=== PATIENT | male | born 2000 | race Caucasian/White ===

== ENCOUNTER 2024-11-26 11:28 | Emergency (ER) | payer OTHER, SELFPAY ==
[2024-11-26] VITALS (11 sets, daily range): BP systolic 121–146; BP diastolic 61–82; PULSE 68–87; RESP 2–18; TEMP 36; O2SAT 97–100; BMI 44.3
--- NOTE | 2024-11-26 11:57 | DI.RAD.S_ITS ---
PROCEDURE: XR CHEST 1V INDICATIONS: chest pain TECHNIQUE: One view of the chest was acquired. COMPARISON: None. FINDINGS: Surgical changes and devices: None. Lungs and pleura: Lungs are clear. No pleural effusions or pneumothorax. Mediastinum: Mediastinal contours appear normal. Heart size is normal. Bones and chest wall: No suspicious bony lesions. Overlying soft tissues appear unremarkable. IMPRESSION: No acute cardiothoracic process. Dictated by: Kurt Arcos M.D. on 11/26/2024 at 12:35 Approved by: Kurt Arcos M.D. on 11/26/2024 at 12:35
--- NOTE | 2024-11-26 12:02 | EKG_ITS ---
[address] [address] Test Date: 2024-11-26 Pat Name: Bimal Zhong Department: Room: Gender: Male Program Host: BELLE : 2000 Requested By: Order Number: [id number] Reading MD: Kimani Dye Measurements Intervals [place] Rate: 81 P: 31 ME: 168 QRS: 17 QRSD: 92 T: 13 QT: 378 QTc: 439 Interpretive Statements Normal sinus rhythm Electronically Signed On 11-26-2024 15:41:55 PDT by Kimani Dye
[2024-11-26 12:42] LABS: Add Manual Diff / Slide Review NO; Basophils Absolute Auto 0 /uL (0-100); Basophils Percent Auto 0.6 % (0-2); Eosinophils Absolute Auto 100 /uL (0-450); Eosinophils Percent Auto 0.7 % (2-4); Hematocrit 43.5 % (41-53); Lymphocytes Absolute Auto 1600 /uL (1100-4500); Lymphocytes Percent Auto 21.7 % (25-40); Mean Corpuscular HGB Conc 34.4 % (30-36); Mean Corpuscular Hemoglobin 28.7 PG (26-34); Mean Corpuscular Volume 83.4 fL (80-100); Monocytes Absolute Auto 800 /uL (0-900); Monocytes Percent Auto 10.4 % (3-14); Neutrophils Absolute Auto 5100 /uL (1500-7000); Neutrophils Percent Auto 66.6 % (50-75); Platelet Count 298 X10^3/uL (150-400); Red Blood Cell Count 5.22 X10^6/uL (4.5-5.9); Red Cell Distribution Width 13.3 % (11.6-14.8); White Blood Cell Count 7.6 X10^3/uL (4.5-11.0)
[2024-11-26 12:54] LABS: Prothrombin Time 11.5 SECONDS (9.4-12.5)
[2024-11-26 12:57] LABS: PTT Partial Thromboplastin Tim 38 SECONDS (25.1-36.5)
[2024-11-26 13:01] LABS: Alanine Aminotransferase 43 IU/L (<50); Albumin 4.4 g/dL (3.5-5.0); Albumin Globulin Ratio 1.2 (1.0-2.8); Alkaline Phosphatase 84 U/L (38-126); Aspartate Aminotransferase 37 IU/L (17-59); BUN Creatinine Ratio 15.6 (6-22); Bilirubin Total 0.7 mg/dL (0.2-1.3); Blood Urea Nitrogen 14 mg/dL (9-20); Calcium 9.1 mg/dL (8.4-10.2); Carbon Dioxide 28 mmol/L (22-32); Chloride 102 mmol/L (98-107); Creatine Kinase 229 U/L (55-170); Estimated Glomerular Filt Rate > 60 mL/min (>60); Globulin 3.8 g/dL (1.7-4.1); Glucose 74 mg/dL (70-100); HEMOLYSIS < 15 (0-50); Lipase 43 U/L (23-300); Sodium 138 mmol/L (137-145); Total Protein 8.2 g/dL (6.3-8.2)
[2024-11-26 13:13] LABS: NT-proBNP (BNP-Adult 18+) < 20 pg/mL (<125); Troponin I < 0.012 ng/mL (0.01-0.034)
--- NOTE | 2024-11-26 13:59 | ED_ITS ---
HPI - Chest Pain General Chief Complaint: Chest Pain Stated Complaint: Sent from [facility] Mild chest pain Time Seen by Provider: 11/26/24 13:38 Source: patient Mode of arrival: Ambulatory Limitations: no limitations History of Present Illness HPI narrative: 24-year-old male no reported medical issues who presents with complaint of chest pain left-sided without radiation. Patient states has been about a week and a half. Been fairly constant occasionally goes away. He states it seems to be worse when he vapes. It seems to be better when he rests. He states exertion ambulation movement do not really seemed to make it a lot worse. Denies any shortness of breath. No fevers or chills. No cold cough or congestion. Little nauseated today but no vomiting. No diaphoresis. No new swelling in extremities. No issues with bowel movements or urination. No rash or skin changes. Patient states he presented today because pain was maybe slightly worse in the last several days. States no daily medications, no prior surgeries. No known drug allergies. Does use nicotine pouches does vape tobacco, occasional alcohol but not regular, no other recreational drugs besides show room gummies. Notes his dad had a heart attack at age 40. No other close family relatives with cardiac events. No known embolic history. Patient does note he was drinking a lot of energy drinks up to 520 mg of caffeine daily and so was his dad before his [place] he has since decreased his usage of caffeine. 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 Related Data Allergies Allergy/AdvReac Type Severity Reaction Status Date / Time No Known Drug Allergies Allergy Verified 11/26/24 11:52 Review of Systems Review of Systems ROS Unobtainable: All systems reviewed & are unremarkable except as noted in HPI and below Patient History tobacco type: smokeless tobacco Alcohol type: beer Exam Narrative Exam Narrative: GENERAL: Alert and oriented x three, obese male in mild distress. HEENT: Head normocephalic, atraumatic, EOMI, pupils reactive, face symmetric, moist mucous membranes NECK: Supple, full range of motion CARDIOVASCULAR: Regular rate and rhythm without murmurs, rubs or gallops. Patient is tender over the left lateral chest. No rash or skin changes. No JVD. No edema bilateral lower extremities. RESPIRATORY: Breath sounds equal bilaterally, no wheezes rales or rhonchi. No tachypnea or accessory muscle use. ABDOMEN: Soft, nontender. Normoactive bowel sounds all 4 quadrants. No guarding or rebound, rigidity, no mass : No CVA tenderness EXTREMITIES: Normal range of motion, no clubbing or edema. Neurovascularly intact NEUROLOGICAL: Cranial nerves II through XII grossly intact. Moving all extremities SKIN: Warm, dry, no petechiae, no rashes or lesions. Initial Vital Signs Initial Vital Signs: Vital Signs Temperature 96.8 F L 11/26/24 11:52 Pulse Rate 79 11/26/24 11:52 Respiratory Rate 18 11/26/24 11:52 Blood Pressure 144/70 H 11/26/24 11:52 Pulse Oximetry 100 11/26/24 11:52 Oxygen Delivery Method Room Air 11/26/24 11:52 Scores HEART Score Heart Score history: Slightly Suspicious Heart Score EKG: Normal Heart Score Age: < 45 years old Heart Score risk factors: 1-2 risk factors Heart Score troponin: < or = to normal limit Heart Score Total: 1 PERC Score Age greater than or equal to 50 years: No Heart rate greater than or equal to 100 bpm: No Room Air O2 Sat less than 95%: No Unilateral leg swelling: No Recent trauma or surgery: No Hemoptysis: No Prior PE or DVT: No Hormone Use: No Total PERC Score: 0 Course Orders Ordered: ED Orders 11/26/24 11:57 XR chest 1V Stat EKG-12 Lead Stat 11/26/24 12:23 Complete Blood Count AUTO DIFF Stat Comprehensive Metabolic Panel Stat D Dimer Stat Lipase Stat Magnesium Stat NT-proBNP (BNP-Adult 18+) Stat PTT Partial Thromboplastin Herve Stat Prothrombin Time INR Stat Troponin & CK Cardiac Panel Stat 11/26/24 14:25 Trop I [Troponin I] Stat Discontinued Medications Aspirin (Aspirin 81 Mg Chew Tab) 324 mg PO NOW ONE Stop: 11/26/24 11:58 Last Admin: 11/26/24 12:51 Dose: Not Given Documented By: TC Vital Signs Vital signs: Vital Signs - 8 hr 11/26/24 11:52 11/26/24 12:04 11/26/24 12:06 Temperature 96.8 F L Pulse Rate 79 87 80 Respiratory Rate 18 15 Blood Pressure 144/70 H Pulse Oximetry 100 99 Oxygen Delivery Method Room Air 11/26/24 12:06 11/26/24 12:30 11/26/24 12:36 Temperature Pulse Rate 74 77 Respiratory Rate 16 13 Blood Pressure 146/82 H Pulse Oximetry 97 99 Oxygen Delivery Method 11/26/24 12:36 11/26/24 13:00 11/26/24 13:00 Temperature Pulse Rate 73 Respiratory Rate 15 Blood Pressure 142/82 H 127/80 Pulse Oximetry 100 Oxygen Delivery Method 11/26/24 13:30 11/26/24 13:30 11/26/24 14:00 Temperature Pulse Rate 68 71 Respiratory Rate 2 L 6 L Blood Pressure 136/61 Pulse Oximetry 97 100 Oxygen Delivery Method 11/26/24 14:00 11/26/24 14:30 11/26/24 14:30 Temperature Pulse Rate 74 Respiratory Rate 11 L Blood Pressure 136/68 128/72 Pulse Oximetry Oxygen Delivery Method 11/26/24 15:00 11/26/24 15:00 11/26/24 15:25 Temperature Pulse Rate 74 74 Respiratory Rate 7 L 16 Blood Pressure 121/76 121/76 Pulse Oximetry 97 Oxygen Delivery Method Room Air MDM - Chest Pain Lab Data 11/26/24 12:23 11/26/24 12:23 Labs: Lab Results 11/26/24 11/26/24 Range/Units 12:23 14:25 WBC 7.6 (4.5-11.0) X10^3/uL RBC 5.22 (4.5-5.9) X10^6/uL Hgb 15.0 (13.5-17.5) g/dL Hct 43.5 (41-53) % MCV 83.4 (80-100) fL MCH 28.7 (26-34) PG MCHC 34.4 (30-36) % RDW 13.3 (11.6-14.8) % Plt Count 298 (150-400) X10^3/uL Neut % (Auto) 66.6 (50-75) % Lymph % (Auto) 21.7 L (25-40) % [place] % (Auto) 10.4 (3-14) % Eos % (Auto) 0.7 L (2-4) % Baso % (Auto) 0.6 (0-2) % Neut # (Auto) 5100 (7044-9770) /uL Lymph # (Auto) 1600 (2762-0166) /uL [place] # (Auto) 800 (0-900) /uL Eos # (Auto) 100 (0-450) /uL Baso # (Auto) 0 (0-100) /uL PT 11.5 (9.4-12.5) SECONDS INR 1.0 (0.9-1.3) APTT 38 H (25.1-36.5) SECONDS D-Dimer < 215 (<500) ng/ml Sodium 138 (137-145) mmol/L Potassium 4.0 (3.4-5.1) mmol/L Chloride 102 (98-107) mmol/L Carbon Dioxide 28 (22-32) mmol/L BUN 14 (9-20) mg/dL Creatinine 0.90 (0.66-1.25) mg/dL Estimated GFR > 60 (>60) mL/min BUN/Creatinine Ratio 15.6 (6-22) Glucose 74 (70-100) mg/dL Calcium 9.1 (8.4-10.2) mg/dL Magnesium 2.0 (1.6-2.3) mg/dL Total Bilirubin 0.7 (0.2-1.3) mg/dL AST 37 (17-59) IU/L ALT 43 (<50) IU/L Alkaline Phosphatase 84 (38-126) U/L Total Creatine Kinase 229 H (55-170) U/L Troponin I < 0.012 < 0.012 (0.01-0.034) ng/mL NT-Pro-B Natriuret Pep < 20 (<125) pg/mL Total Protein 8.2 (6.3-8.2) g/dL Albumin 4.4 (3.5-5.0) g/dL Globulin 3.8 (1.7-4.1) g/dL Albumin/Globulin Ratio 1.2 (1.0-2.8) Lipase 43 (23-300) U/L ECG Data Attestation: I personally reviewed and interpreted this ECG as follows: Prior ECG tracings: not available for review Interpretation: Sinus rhythm rate 81 WA 168 QRS of 92 QTC 439, no acute ST changes appreciated. No prior for comparison MDM Narrative Medical decision making narrative: EKG shows sinus rhythm Chest x-ray shows no acute change Labs show normal white count hemoglobin and platelets, INR is 1, electrolytes, BUN creatinine, LFTs are negative total CK is 229 troponins less than 0.012 with a BNP of less than 20. Repeat troponin is less than 0.012 dimer is negative less than 215 PERC score is is 0. Patient's heart score is 1. Patient has a reproducible chest pain on exam. [place] appropriate for discharge but if persistent symptoms would have patient follow up. Main risk factor is patient's BMI and family cardiac history. Patient did not does note worsening with vaping was encouraged to avoid this. Discharge Plan Departure Patient Disposition: Home Clinical Impression: Chest pain Instructions: DI for Chest Pain Activity Restrictions/Additional Instructions: Follow up for recheck with your physician and if your symptoms are not resolving. If vaping seems to worsen your symptoms I would recommend that you stop and avoid any tobacco products and vaping. Please return if you have new or worsening symptoms, shortness of breath, fevers, increased or new chest pain, new rash or skin changes, vomiting, new swelling in your extremities or other new or concerning changes. Stand Alone Forms: Patient Portal/API/Survey
[2024-11-26 14:40] LABS: D Dimer < 215 ng/ml (<500)
[2024-11-26 15:03] LABS: Troponin I < 0.012 ng/mL (0.01-0.034)
== END 2024-11-26 15:26 | disposition home or self-care (01) ==
PROVIDERS: Emergency Provider Emergency Medicine
DX: R07.9 Chest pain, unspecified (principal)
CPT/HCPCS: 36415; 71045; 80053; 82550; 83690; 83735; 83880; 84484; 85025; 85379; 85610; 85730; 93005; 99284